=== PATIENT | female | born 1980 | race African-American/Black ===

== ENCOUNTER 2017-06-12 01:33 | Inpatient (IN) ==
[2017-06-12] MEDS ORDERED: hydrALAZINE 20 MG/1 ML VIAL IV STA ×2 (02:01→03:03)
[2017-06-12] MEDS ORDERED: hydrALAZINE 20 MG/1 ML VIAL ONE ×2 (02:02→03:07)
[2017-06-12 02:45] LABS: Albumin 3.1 G/DL (3.4-5.0); Basophils % 0.5 % (0.0-0.8); Bilirubin,Total 0.4 MG/DL (0.2-1.0); Calcium 8.7 MG/DL (8.5-10.1); Eosinophils # 0.1 10*3/uL (0.0-0.87); Eosinophils % 0.9 % (0.00-10.9); Hematocrit 25.7 VOL% (35.7-47.0); Hemoglobin 7.3 GM/DL (12.0-16.0); Immature Granulocytes % 0.5 %; Immature Granulocytes Absolute 0.04 #; Lymphocytes # 2.9 10*3/uL (1.4-4.0); Lymphocytes % 36.8 % (21.3-54.2); Mean Corpuscular HGB Conc 28.4 GM/DL (32-36); Mean Corpuscular Hemoglobin 19 PG (27-34); Mean Corpuscular Volume 66.9 FL (87-102); Mean Platelet Volume 9.7 FL (9.6-12.0); Monocytes # 0.5 10*3/uL (0.11-0.8); Monocytes % 6.5 % (1.7-12.7); Neutrophils # 4.3 10*3/uL (1.4-7.4); Neutrophils % 54.8 % (38.7-73.9); Osmolality,Calculated 279.5 MOS/KG (273-304); Platelet Count 437 T/CUMM (130-400); Potassium 3.5 MMOL/L (3.5-5.1); Red Blood Count 3.84 MC/CUMM (3.8-5.5); Red Cell Distribution Width 19.1 % (9.3-17.3); White Blood Count 7.9 T/CUMM (4-12)
[2017-06-12 02:47] LABS: Troponin I Only 0.056 NG/ML (0.00-0.045)
[2017-06-12] MEDS ORDERED: FUROSEMIDE 40 MG/4 ML VIAL IV STA (03:40)
[2017-06-12] MEDS ORDERED: FUROSEMIDE 40 MG/4 ML VIAL ONE (04:08)
[2017-06-12] MEDS ORDERED: ONDANSETRON 4 MG/2 ML VIAL IV PRN (04:34)
[2017-06-12] MEDS ORDERED: CARVEDILOL 3.125 MG TABLET PO STA (04:39)
[2017-06-12] MEDS ORDERED: NITROGLYCERIN 2% OINT 1 INCH/GM PACK TOP STA (04:40)
[2017-06-12] MEDS ORDERED: CARVEDILOL 3.125 MG TABLET ONE (05:07)
[2017-06-12] MEDS: hydrALAZINE 20 MG/1 ML VIAL IV PRN (06:14)
[2017-06-12 07:57] LABS: Barbiturates Screen,Urine Negative (Negative); Benzodiazepines Screen,Urine Negative (Negative); Cannabinoid Screen,Urine Negative (Negative); Opiate Screen,Urine Negative (Negative); Phencyclidine Screen,Urine Negative (Negative)
[2017-06-12] MEDS: FUROSEMIDE 40 MG/4 ML VIAL IV SCH ×2 (08:47→15:46)
[2017-06-12] MEDS: CARVEDILOL 12.5 MG TABLET PO SCH ×2 (08:47→20:27)
[2017-06-12] MEDS: IRON (CARBONYL) 45 MG TABLET PO SCH ×3 (08:47→20:27)
[2017-06-12] MEDS: ENOXAPARIN 40 MG/0.4 ML SYRINGE SUBCUT SCH (08:47)
[2017-06-12] MEDS ORDERED: INFLUENZA VIRUS VACCINE 0.5 ML SYRINGE IM ONE (09:00)
[2017-06-12] MEDS ORDERED: CARVEDILOL 6.25 MG TABLET PO SCH (09:00)
[2017-06-12] MEDS ORDERED: NITROGLYCERIN 2% OINT 1 INCH/GM PACK TOP SCH (11:00)
[2017-06-12] MEDS: ACETAMINOPHEN 325 MG TABLET PO PRN ×2 (12:46→18:08)
[2017-06-12] MEDS ORDERED: BENZONATATE 100 MG CAPSULE PO PRN (14:33)
[2017-06-13] MEDS: ACETAMINOPHEN 325 MG TABLET PO PRN ×2 (01:23→08:19)
[2017-06-13] MEDS: BENZOCAINE 10% ORAL GEL 7 GM TUBE TOP PRN ×2 (01:52→08:21)
[2017-06-13] MEDS: hydrALAZINE 20 MG/1 ML VIAL IV PRN ×2 (03:29→08:18)
[2017-06-13 05:24] LABS: Basophils % 0.4 % (0.0-0.8); Eosinophils # 0.1 10*3/uL (0.0-0.87); Hematocrit 26.6 VOL% (35.7-47.0); Hemoglobin 7.6 GM/DL (12.0-16.0); Immature Granulocytes % 0.4 %; Immature Granulocytes Absolute 0.03 #; Lymphocytes # 2.2 10*3/uL (1.4-4.0); Lymphocytes % 31.6 % (21.3-54.2); Mean Corpuscular HGB Conc 28.6 GM/DL (32-36); Mean Corpuscular Hemoglobin 19 PG (27-34); Mean Corpuscular Volume 65.4 FL (87-102); Mean Platelet Volume 9.6 FL (9.6-12.0); Monocytes # 0.7 10*3/uL (0.11-0.8); Monocytes % 10.2 % (1.7-12.7); Neutrophils # 3.9 10*3/uL (1.4-7.4); Neutrophils % 55.4 % (38.7-73.9); Platelet Count 477 T/CUMM (130-400); Red Blood Count 4.07 MC/CUMM (3.8-5.5); Red Cell Distribution Width 19.2 % (9.3-17.3); White Blood Count 7.1 T/CUMM (4-12)
[2017-06-13 05:53] LABS: Calcium 8.6 MG/DL (8.5-10.1); Osmolality,Calculated 280.4 MOS/KG (273-304); Potassium 3.2 MMOL/L (3.5-5.1); Risk Ratio 2.35; VLDL CHOLESTEROL 10.6 MG/DL
[2017-06-13 06:00] LABS: Anisocytosis 1+; Elliptocytes Few; Microcytosis 3+; Polychromasia 1+
[2017-06-13 06:01] LABS: Platelet Estimate Normal
[2017-06-13] MEDS ORDERED: hydrALAZINE 20 MG/1 ML VIAL IV ONE (06:30)
[2017-06-13] MEDS ORDERED: POTASSIUM CHLORIDE 20 MEQ TABLET PO ONE (07:18)
[2017-06-13] MEDS: IRON (CARBONYL) 45 MG TABLET PO SCH (08:18)
[2017-06-13] MEDS: ENOXAPARIN 40 MG/0.4 ML SYRINGE SUBCUT SCH (08:18)
[2017-06-13] MEDS: CARVEDILOL 12.5 MG TABLET PO SCH (08:19)
[2017-06-13] MEDS ORDERED: amLODIPine 5 MG TABLET PO SCH (09:00)
[2017-06-13] MEDS ORDERED: SPIRONOLACTONE 25 MG TABLET PO SCH (09:00)
[2017-06-13 12:29] VITALS: BP 121/69
== END 2017-06-13 12:25 | disposition home or self-care (01) | DRG 194 ==
LOC: N.ED 01:33 → N.EDINP 04:25 → INTOOBSV 04:25 → N.4E 05:10
PROVIDERS: ADMIT Family Medicine; ATTEND Family Medicine

== ENCOUNTER 2020-02-17 16:00 | Inpatient (IN) ==
[2020-02-17] MEDS ORDERED: hydrALAZINE 20 MG/1 ML VIAL IV STA (17:11)
[2020-02-17] MEDS ORDERED: FUROSEMIDE 100 MG/10 ML VIAL IV STA (17:40)
[2020-02-17 17:41] LABS: Basophils # 0.1 10*3/uL (0.0-0.2); Basophils % 0.7 % (0.0-0.8); Eosinophils # 0.1 10*3/uL (0.0-0.87); Eosinophils % 0.7 % (0.00-10.9); Hematocrit 31.4 VOL% (35.7-47.0); Hemoglobin 9.5 GM/DL (12.0-16.0); Immature Granulocytes % 0.2 %; Immature Granulocytes Absolute 0.02 #; Lymphocytes # 2.6 10*3/uL (1.4-4.0); Lymphocytes % 31.4 % (21.3-54.2); Mean Corpuscular HGB Conc 30.3 GM/DL (32-36); Mean Corpuscular Volume 74.1 FL (87-102); Mean Platelet Volume 9.5 FL (9.6-12.0); Platelet Count 344 T/CUMM (130-400); Red Blood Count 4.24 MC/CUMM (3.8-5.5); Red Cell Distribution Width 20.2 % (9.3-17.3); White Blood Count 8.4 T/CUMM (4-12)
[2020-02-17] MEDS ORDERED: FUROSEMIDE 40 MG/4 ML VIAL ONE (18:00)
[2020-02-17 18:08] LABS: Albumin 3.6 G/DL (3.4-5.0); Bilirubin,Total 0.6 MG/DL (0.2-1.0); Calcium 9.4 MG/DL (8.5-10.1); Osmolality,Calculated 281.4 MOS/KG (273-304); Total Protein 7.4 G/DL (6.4-8.3)
[2020-02-17 18:50] LABS: INR 1.3; PT Patient Result 13.7 SECS (9.8-11.9)
[2020-02-17] MEDS ORDERED: cloNIDine 0.1 MG TABLET PO STA (19:07)
[2020-02-17] MEDS ORDERED: cefTRIAXone 1,000 MG in SODIUM CHLORIDE 0.9% 100 ML IV STA (19:19)
[2020-02-17 19:20] LABS: Eosinophils 1 % (0-10); Lymphocytes 28 % (20-55); Microcytosis Slight; Platelet Estimate Normal; Segmented Neutrophils 67 % (50-85); Total Cells Counted 100
[2020-02-17] MEDS ORDERED: ACETAMINOPHEN 325 MG TABLET PO PRN (21:12)
[2020-02-17] MEDS ORDERED: DEXTROSE 50% 25 GM/50 ML VIAL IV PRN (21:12)
[2020-02-17] MEDS ORDERED: ONDANSETRON 4 MG/2 ML VIAL IV PRN (21:12)
[2020-02-17] MEDS ORDERED: hydrALAZINE 20 MG/1 ML VIAL IV PRN (21:12)
[2020-02-17] MEDS ORDERED: NICOTINE 21 MG/24 HR PATCH TRANSDERM PRN (21:12)
[2020-02-17] MEDS ORDERED: GLUCAGON 1 MG VIAL IM PRN (21:12)
[2020-02-17] MEDS ORDERED: amLODIPine 10 MG TABLET PO ONE (21:20)
[2020-02-17] MEDS ORDERED: FUROSEMIDE 40 MG/4 ML VIAL IV ONE (21:24)
[2020-02-17] MEDS ORDERED: hydrALAZINE 25 MG TABLET PO SCH (21:30)
[2020-02-17 22:05] LABS: % Iron Saturation 4.3 % (18-50); Ferritin 15.5 ng/ml (8-252)
[2020-02-17 22:09] LABS: Bilirubin,Urine Negative (Negative); Blood, Urine Negative (Negative); Glucose,Urine (UA) Negative (Negative); Hyaline Casts,Urine 3 /LPF (0-3); Ketones,Urine Negative (Negative); Mucus,Urine Occasional /LPF (Occasional); Nitrite,Urine Negative (Negative); Protein,Urine Negative; RBC,Urine 2 /HPF (0-4); Squamous Epithelial Cell,Urine Occasional /HPF (0-10); Urine Appearance CLEAR (Clear); Urine Color Straw (Yellow); Urine Specific Gravity 1.006 (1.001-1.035); Urine Urobilinogen < 2.0 EU/DL (0.2-1.0); WBC,Urine 1 /HPF (0-6)
[2020-02-17] MEDS: AZITHROMYCIN INJ 500 MG in SODIUM CHLORIDE 0.9% 250 ML IV SCH (22:26)
[2020-02-17] MEDS: ENOXAPARIN 40 MG/0.4 ML SYRINGE SUBCUT SCH (22:27)
[2020-02-18 00:16] LABS: Barbiturates Screen,Urine Negative (Negative); Benzodiazepines Screen,Urine Negative (Negative); Cannabinoid Screen,Urine Negative (Negative); Opiate Screen,Urine Negative (Negative); Phencyclidine Screen,Urine Negative (Negative)
[2020-02-18] MEDS: ALBUTEROL 2.5 MG/3 ML NEB RESP TX SCH ×4 (01:38→19:12)
[2020-02-18 07:37] LABS: Basophils % 0.5 % (0.0-0.8); Eosinophils # 0.1 10*3/uL (0.0-0.87); Eosinophils % 1.4 % (0.00-10.9); Hematocrit 29.2 VOL% (35.7-47.0); Hemoglobin 8.9 GM/DL (12.0-16.0); Immature Granulocytes % 0.2 %; Immature Granulocytes Absolute 0.02 #; Lymphocytes % 34.8 % (21.3-54.2); Mean Corpuscular HGB Conc 30.5 GM/DL (32-36); Mean Corpuscular Volume 72.6 FL (87-102); Mean Platelet Volume 9.8 FL (9.6-12.0); Monocytes % 6.8 % (1.7-12.7); Neutrophils % 56.3 % (38.7-73.9); Platelet Count 317 T/CUMM (130-400); Red Blood Count 4.02 MC/CUMM (3.8-5.5); Red Cell Distribution Width 19.8 % (9.3-17.3); White Blood Count 8.6 T/CUMM (4-12)
[2020-02-18 07:57] LABS: Albumin 3.2 G/DL (3.4-5.0); Bilirubin,Total 1.1 MG/DL (0.2-1.0); Calcium 9.1 MG/DL (8.5-10.1); Osmolality,Calculated 280.4 MOS/KG (273-304); Risk Ratio 2.3; Total Protein 7.2 G/DL (6.4-8.3); VLDL CHOLESTEROL 9.8 MG/DL
[2020-02-18] MEDS ORDERED: NEBIVOLOL 5 MG TABLET PO SCH (09:00)
[2020-02-18] MEDS ORDERED: amLODIPine 10 MG TABLET PO SCH (09:00)
[2020-02-18] MEDS: ASPIRIN CHEW 81 MG TABLET PO SCH (09:35)
[2020-02-18] MEDS: carvediloL 3.125 MG TABLET PO SCH ×2 (09:35→16:15)
[2020-02-18] MEDS: LOSARTAN 25 MG TABLET PO SCH (09:35)
[2020-02-18] MEDS: FUROSEMIDE 40 MG/4 ML VIAL IV SCH ×2 (09:35→16:14)
[2020-02-18] MEDS: IRON (CARBONYL) 45 MG TABLET PO SCH ×3 (10:02→21:01)
[2020-02-18] MEDS: PANTOPRAZOLE 40 MG TABLET PO SCH (10:03)
[2020-02-18 10:08] LABS: Eosinophils 1 % (0-10); Hypochromasia 4+; Lymphocytes 32 % (20-55); Microcytosis 3+; Schistocytes Slight; Segmented Neutrophils 62 % (50-85); Total Cells Counted 100
[2020-02-18 10:09] LABS: Atypical Lymphocytes 1+; Elliptocytes Few; Ovalocytes Few; Platelet Estimate Normal
[2020-02-18] MEDS ORDERED: cefTRIAXone 1,000 MG in SYRINGE 1 EACH IV SCH (21:00)
[2020-02-18] MEDS: ENOXAPARIN 40 MG/0.4 ML SYRINGE SUBCUT SCH (21:01)
[2020-02-18] MEDS: AZITHROMYCIN INJ 500 MG in SODIUM CHLORIDE 0.9% 250 ML IV SCH (21:01)
[2020-02-19] MEDS: ALBUTEROL 2.5 MG/3 ML NEB RESP TX SCH ×2 (00:21→07:20)
[2020-02-19 05:56] LABS: Basophils % 0.6 % (0.0-0.8); Eosinophils # 0.3 10*3/uL (0.0-0.87); Eosinophils % 3.8 % (0.00-10.9); Hematocrit 29.6 VOL% (35.7-47.0); Hemoglobin 9.1 GM/DL (12.0-16.0); Immature Granulocytes % 0.3 %; Immature Granulocytes Absolute 0.02 #; Lymphocytes # 2.3 10*3/uL (1.4-4.0); Lymphocytes % 33.7 % (21.3-54.2); Mean Corpuscular HGB Conc 30.7 GM/DL (32-36); Mean Corpuscular Volume 73.1 FL (87-102); Mean Platelet Volume 9.6 FL (9.6-12.0); Monocytes % 7.9 % (1.7-12.7); Neutrophils % 53.7 % (38.7-73.9); Platelet Count 341 T/CUMM (130-400); Red Blood Count 4.05 MC/CUMM (3.8-5.5); Red Cell Distribution Width 19.8 % (9.3-17.3); White Blood Count 6.9 T/CUMM (4-12)
[2020-02-19 06:21] LABS: Calcium 8.5 MG/DL (8.5-10.1); Osmolality,Calculated 278.7 MOS/KG (273-304)
[2020-02-19 07:04] LABS: Eosinophils 4 % (0-10); Hypochromasia 1+; Lymphocytes 33 % (20-55); Microcytosis 1+; Platelet Estimate Adequate; Segmented Neutrophils 58 % (50-85); Total Cells Counted 100
[2020-02-19 07:05] LABS: Atypical Lymphocytes Few
[2020-02-19 08:06] VITALS: BP 140/71
[2020-02-19] MEDS: ASPIRIN CHEW 81 MG TABLET PO SCH (08:27)
[2020-02-19] MEDS: IRON (CARBONYL) 45 MG TABLET PO SCH (08:27)
[2020-02-19] MEDS: carvediloL 3.125 MG TABLET PO SCH (08:28)
[2020-02-19] MEDS: LOSARTAN 25 MG TABLET PO SCH (08:28)
[2020-02-19] MEDS: PANTOPRAZOLE 40 MG TABLET PO SCH (08:33)
[2020-02-19] MEDS: FUROSEMIDE 40 MG/4 ML VIAL IV SCH (09:15)
[2020-02-19] MEDS ORDERED: POTASSIUM CHLORIDE 20 MEQ TABLET PO ONE (10:46)
[2020-02-19] MEDS ORDERED: FUROSEMIDE 40 MG TABLET PO SCH (16:00)
[2020-02-19] MEDS ORDERED: AZITHROMYCIN 250 MG TABLET PO SCH (21:00)
[2020-02-20] MEDS ORDERED: POTASSIUM CHLORIDE 10 MEQ TABLET PO SCH (09:00)
== END 2020-02-19 10:40 | disposition home or self-care (01) | DRG 291 ==
LOC: N.ED 16:00 → N.EDINP 21:10 → N.TELEN 21:38
PROVIDERS: ADMIT Internal Medicine; ATTEND Internal Medicine

== ENCOUNTER 2021-11-07 12:34 | Inpatient (IN) ==
[2021-11-07] MEDS ORDERED: MAGNESIUM SULF RIDER 2 GM/50 ML PREMIX IV PRN (13:06)
[2021-11-07] MEDS ORDERED: MAGNESIUM SULF RIDER 4 GM/100 ML PREMIX IV PRN (13:06)
[2021-11-07] MEDS ORDERED: guaiFENesin/DM ER 600-30 MG TABLET PO PRN (13:06)
[2021-11-07] MEDS ORDERED: ACETAMINOPHEN 325 MG TABLET PO PRN (13:06)
[2021-11-07] MEDS ORDERED: DOCUSATE SODIUM 100 MG CAPSULE PO PRN (13:06)
[2021-11-07] MEDS ORDERED: hydrALAZINE 20 MG/1 ML VIAL IV PRN (13:06)
[2021-11-07] MEDS ORDERED: ZALEPLON 5 MG CAPSULE PO PRN (13:06)
[2021-11-07] MEDS ORDERED: PROMETHAZINE 25 MG TABLET PO PRN (13:06)
[2021-11-07] MEDS ORDERED: diphenhydrAMINE CAP 25 MG CAPSULE PO PRN (13:06)
[2021-11-07] MEDS ORDERED: ONDANSETRON 4 MG/2 ML VIAL IV PRN (13:06)
[2021-11-07] MEDS ORDERED: ALUMINUM/MAGNES/SIMETH MAX STR 30 ML UDCUP PO PRN (13:06)
[2021-11-07 14:57] LABS: Basophils % 0.5 % (0.0-0.8); Eosinophils # 0.1 10*3/uL (0.0-0.87); Eosinophils % 0.8 % (0.00-10.9); Hematocrit 40.7 VOL% (35.7-47.0); Immature Granulocytes % 0.3 %; Immature Granulocytes Absolute 0.02 #; Lymphocytes # 1.3 10*3/uL (1.4-4.0); Mean Corpuscular HGB Conc 31.9 GM/DL (32-36); Mean Corpuscular Volume 93.3 FL (87-102); Monocytes # 0.3 10*3/uL (0.11-0.8); Monocytes % 4.8 % (1.7-12.7); Neutrophils % 73.6 % (38.7-73.9); Platelet Count 205 T/CUMM (130-400); Red Blood Count 4.36 MC/CUMM (3.8-5.5); Red Cell Distribution Width 18.6 % (9.3-17.3); White Blood Count 6.3 T/CUMM (4-12)
[2021-11-07 15:28] LABS: Albumin 3.7 G/DL (3.4-5.0); Bilirubin,Total 2.4 MG/DL (0.20-1.00); Calcium 9.4 MG/DL (8.5-10.1); Osmolality,Calculated 279.5 MOS/KG (273-304); Potassium 2.6 MMOL/L (3.5-5.1); Thyroid Stimulating Hormone 3.39 uIU/ml (0.358-3.74); Total Protein 7.8 G/DL (6.4-8.2)
[2021-11-07] MEDS ORDERED: POTASSIUM CHLORIDE 20 MEQ TABLET PO ONE (16:41)
[2021-11-07] MEDS: ENOXAPARIN 40 MG/0.4 ML SYRINGE SUBCUT SCH (17:14)
[2021-11-07] MEDS: FUROSEMIDE 40 MG/4 ML VIAL IV SCH (17:15)
[2021-11-07] MEDS: METOPROLOL TARTRATE 25 MG TABLET PO SCH (17:34)
[2021-11-07 18:43] LABS: Urine Appearance Clear (Clear); Urine Color Yellow (Yellow); Urine pH 6.5 (4.5-8.0)
[2021-11-07 18:44] LABS: Bilirubin,Urine Negative (Negative); Blood, Urine Negative (Negative); Glucose,Urine (UA) Negative (Negative); Ketones,Urine Negative (Negative); Nitrite,Urine Negative (Negative); Protein,Urine 100 mg/dL (Negative)
[2021-11-07 18:49] LABS: Hyaline Casts,Urine 3 /LPF (0-3); Mucus,Urine Occasional /LPF (Occasional); RBC,Urine 1 /HPF (0-4); Squamous Epithelial Cell,Urine Occasional /HPF (0-10)
[2021-11-07 19:03] LABS: Barbiturates Screen,Urine Negative (Negative); Benzodiazepines Screen,Urine Negative (Negative); Cannabinoid Screen,Urine Negative (Negative); Opiate Screen,Urine Negative (Negative); Phencyclidine Screen,Urine Negative (Negative)
[2021-11-08 06:15] LABS: Basophils # 0.1 10*3/uL (0.0-0.2); Basophils % 0.8 % (0.0-0.8); Eosinophils # 0.1 10*3/uL (0.0-0.87); Eosinophils % 1.4 % (0.00-10.9); Hematocrit 40.1 VOL% (35.7-47.0); Hemoglobin 12.7 GM/DL (12.0-16.0); Immature Granulocytes % 0.5 %; Immature Granulocytes Absolute 0.03 #; Lymphocytes % 31.2 % (21.3-54.2); Mean Corpuscular HGB Conc 31.7 GM/DL (32-36); Mean Corpuscular Volume 92.8 FL (87-102); Mean Platelet Volume 9.9 FL (9.6-12.0); Monocytes # 0.4 10*3/uL (0.11-0.8); Neutrophils % 60.1 % (38.7-73.9); Platelet Count 207 T/CUMM (130-400); Red Blood Count 4.32 MC/CUMM (3.8-5.5); Red Cell Distribution Width 18.4 % (9.3-17.3); White Blood Count 6.5 T/CUMM (4-12)
[2021-11-08 06:31] LABS: Calcium 9.7 MG/DL (8.5-10.1); Osmolality,Calculated 277.5 MOS/KG (273-304); Potassium 2.7 MMOL/L (3.5-5.1); Risk Ratio 1.96; VLDL Cholesterol 11.8 MG/DL
[2021-11-08 07:02] LABS: Band Neutrophils 2 % (0-10); Eosinophils 2 % (0-10); Lymphocytes 34 % (20-55); Platelet Estimate Normal; Total Cells Counted 100
[2021-11-08 07:03] LABS: Anisocytosis 1+; Burr Cells Few; Macrocytosis 1+; Ovalocytes Few
[2021-11-08] MEDS ORDERED: POTASSIUM CHLORIDE 20 MEQ TABLET PO ONE (08:15)
[2021-11-08] MEDS ORDERED: POTASSIUM CHLORIDE 20 MEQ TABLET PO SCH (09:00)
[2021-11-08] MEDS: SPIRONOLACTONE 25 MG TABLET PO SCH (09:34)
[2021-11-08] MEDS: FUROSEMIDE 40 MG/4 ML VIAL IV SCH ×2 (09:34→16:48)
[2021-11-08] MEDS: PANTOPRAZOLE 40 MG TABLET PO SCH (09:35)
[2021-11-08] MEDS: METOPROLOL TARTRATE 25 MG TABLET PO SCH (09:35)
[2021-11-08] MEDS: ENOXAPARIN 40 MG/0.4 ML SYRINGE SUBCUT SCH (16:48)
[2021-11-08] MEDS: POTASSIUM CHLORIDE 20 MEQ TABLET PO SCH (20:20)
[2021-11-08] MEDS: METOPROLOL TARTRATE 50 MG TABLET PO SCH (20:20)
[2021-11-09] MEDS: SPIRONOLACTONE 25 MG TABLET PO SCH (09:01)
[2021-11-09] MEDS: METOPROLOL TARTRATE 50 MG TABLET PO SCH ×2 (09:01→20:50)
[2021-11-09] MEDS: POTASSIUM CHLORIDE 20 MEQ TABLET PO SCH ×2 (09:01→20:50)
[2021-11-09] MEDS: FUROSEMIDE 40 MG/4 ML VIAL IV SCH ×2 (09:02→16:57)
[2021-11-09] MEDS: PANTOPRAZOLE 40 MG TABLET PO SCH (09:03)
[2021-11-09 16:41] LABS: Calcium 9.2 MG/DL (8.5-10.1); Osmolality,Calculated 283.4 MOS/KG (273-304); Potassium 3.3 MMOL/L (3.5-5.1)
[2021-11-09] MEDS: ENOXAPARIN 40 MG/0.4 ML SYRINGE SUBCUT SCH (16:57)
[2021-11-10 06:15] LABS: Basophils % 0.4 % (0.0-0.8); Eosinophils # 0.1 10*3/uL (0.0-0.87); Hematocrit 40.3 VOL% (35.7-47.0); Immature Granulocytes % 0.4 %; Immature Granulocytes Absolute 0.03 #; Lymphocytes % 28.7 % (21.3-54.2); Mean Corpuscular HGB Conc 32.3 GM/DL (32-36); Mean Corpuscular Volume 93.1 FL (87-102); Mean Platelet Volume 10.3 FL (9.6-12.0); Monocytes # 0.5 10*3/uL (0.11-0.8); Monocytes % 7.5 % (1.7-12.7); Platelet Count 209 T/CUMM (130-400); Red Blood Count 4.33 MC/CUMM (3.8-5.5); Red Cell Distribution Width 18.6 % (9.3-17.3); White Blood Count 7.1 T/CUMM (4-12)
[2021-11-10 06:35] LABS: Calcium 9.3 MG/DL (8.5-10.1); Osmolality,Calculated 278.5 MOS/KG (273-304); Potassium 3.3 MMOL/L (3.5-5.1)
[2021-11-10] MEDS: FUROSEMIDE 40 MG/4 ML VIAL IV SCH ×2 (08:56→17:25)
[2021-11-10] MEDS: METOPROLOL TARTRATE 50 MG TABLET PO SCH ×2 (08:57→23:35)
[2021-11-10] MEDS: SPIRONOLACTONE 25 MG TABLET PO SCH (08:57)
[2021-11-10] MEDS: POTASSIUM CHLORIDE 20 MEQ TABLET PO SCH ×2 (08:57→23:34)
[2021-11-10] MEDS: PANTOPRAZOLE 40 MG TABLET PO SCH (08:58)
[2021-11-10] MEDS: metOLazone 2.5 MG TABLET PO SCH (12:02)
[2021-11-10] MEDS: ENOXAPARIN 40 MG/0.4 ML SYRINGE SUBCUT SCH (17:40)
[2021-11-10] MEDS: SACUBITRIL/VALSARTAN 49-51 MG TABLET PO SCH (23:35)
[2021-11-11 06:23] LABS: Basophils # 0.1 10*3/uL (0.0-0.2); Basophils % 0.7 % (0.0-0.8); Eosinophils # 0.1 10*3/uL (0.0-0.87); Eosinophils % 1.4 % (0.00-10.9); Hematocrit 40.7 VOL% (35.7-47.0); Immature Granulocytes % 0.4 %; Immature Granulocytes Absolute 0.03 #; Lymphocytes # 2.1 10*3/uL (1.4-4.0); Mean Corpuscular HGB Conc 31.9 GM/DL (32-36); Mean Corpuscular Volume 93.1 FL (87-102); Mean Platelet Volume 9.9 FL (9.6-12.0); Monocytes # 0.5 10*3/uL (0.11-0.8); Monocytes % 6.9 % (1.7-12.7); Neutrophils % 61.6 % (38.7-73.9); Platelet Count 225 T/CUMM (130-400); Red Blood Count 4.37 MC/CUMM (3.8-5.5); Red Cell Distribution Width 18.5 % (9.3-17.3); White Blood Count 7.3 T/CUMM (4-12)
[2021-11-11 06:39] LABS: Calcium 9.7 MG/DL (8.5-10.1); Osmolality,Calculated 278.7 MOS/KG (273-304); Potassium 2.9 MMOL/L (3.5-5.1)
[2021-11-11 07:16] VITALS: BP 122/54
[2021-11-11] MEDS: FUROSEMIDE 40 MG/4 ML VIAL IV SCH (08:32)
[2021-11-11] MEDS: POTASSIUM CHLORIDE 20 MEQ TABLET PO SCH (08:33)
[2021-11-11] MEDS: METOPROLOL TARTRATE 50 MG TABLET PO SCH (08:33)
[2021-11-11] MEDS: SACUBITRIL/VALSARTAN 49-51 MG TABLET PO SCH (08:33)
[2021-11-11] MEDS: SPIRONOLACTONE 25 MG TABLET PO SCH (08:34)
[2021-11-11] MEDS: PANTOPRAZOLE 40 MG TABLET PO SCH (08:34)
[2021-11-11] MEDS: metOLazone 2.5 MG TABLET PO SCH (08:37)
== END 2021-11-11 12:27 | disposition home or self-care (01) | DRG 194 ==
LOC: N.5E
PROVIDERS: ADMIT Internal Medicine Cardiovascular Disease; ATTEND Internal Medicine Cardiovascular Disease